=== PATIENT | female | born 1970 | race Caucasian/White ===

== ENCOUNTER 2016-12-04 16:20 | Inpatient (IN) | payer MEDICARE, MEDICAID ==
[~2016-12-04] VITALS: Ht 177.8 cm; Wt 152.3 kg
[~2016-12-04 16:20] MED LIST: ADV250 IH; ALBU8.5H IH; ALPR0.5T8 PO; BACL10TA PO; CLOZ100 PO; DESM0.2T2 PO; DEXL60CA3 PO; DOCU250C91 PO; FLUP10 PO; GABA-531 PO; LEVO125T4 PO; LISI-662 PO; OXYB10TA4 PO; PERCT10 PO; PROP10 PO; TIOT185 IH; VENL150C2 PO; VENL225T PO
[2016-12-04] MEDS ORDERED: GABA-531 PO (16:48)
[2016-12-04] MEDS ORDERED: LURA80 PO (16:48)
[2016-12-04 17:12] LABS: BASOPHILS % (AUTO) 0.3 % (0.0-2.0); EOSINOPHILS % (AUTO) 2.2 % (1.0-6.0); HEMATOCRIT 42.1 % (36-46); HEMOGLOBIN 13.5 g/dL (12.0-16.0); LYMPHOCYTES # (AUTO) 2.1 K/uL (1.0-4.8); LYMPHOCYTES % (AUTO) 18.9 % (22.0-44.0); MEAN CORPUSCULAR HEMOGLOBIN 29.6 pg (26.0-34.0); MEAN CORPUSCULAR VOLUME 92 fL (80-100); MONOCYTES # (AUTO) 0.9 K/uL (0.1-1.0); NEUTROPHILS # (AUTO) 7.8 K/uL (1.8-7.7); NEUTROPHILS % (AUTO) 70.6 % (40.0-70.0); PLATELET COUNT (AUTO) 370 K/uL (150-450); RED BLOOD CELL COUNT(AUTO) 4.56 MIL/uL (4.00-5.20); RED CELL DISTRIBUTION WIDTH 15.8 % (11.5-14.5)
[2016-12-04 17:22] LABS: ANION GAP 10 mmol/L (8-16); CALCIUM, TOTAL 8.5 mg/dL (8.8-10.5); CARBON DIOXIDE 26 mmol/L (22-29); CHLORIDE 100 mmol/L (98-107); CREATININE 0.86 mg/dL (0.60-1.30); GLOMERULAR FILTR. RATE CALC > 60 mL/min (>60); POTASSIUM 4.1 mmol/L (3.5-5.1); SODIUM SERUM 136 mmol/L (136-145); UREA NITROGEN, BLOOD 8 mg/dL (7-18)
[2016-12-04 17:26] LABS: ALANINE AMINOTRANSFERASE 42 U/L (12-78); ASPARTATE AMINOTRANSFERASE 18 U/L (15-37); BILIRUBIN,TOTAL 0.2 mg/dL (0.1-1.0); TOTAL PROTEIN, SERUM 7.1 g/dL (6.4-8.2)
[2016-12-04] MEDS ORDERED: HALOPERIDOL 5 MG TABLET PO ONE (21:15)
[2016-12-04] MEDS ORDERED: LORazepam 2 MG TABLET PO ONE (21:15)
[2016-12-04] MEDS ORDERED: -PHARMACY VACCINE NOTE- MISC ONE ×2 (22:15)
[2016-12-04] MEDS ORDERED: INFLUENZA VIRUS VACCINE QVS 2016-17 (3YR+)/PF 60 MCG/0.5 ML SYRINGE IM ONE (22:15)
[2016-12-04] MEDS ORDERED: ALBUTEROL SULFATE HFA 90 MCG/PUFF 8 GM INHALER IH PRN (22:30)
[2016-12-04] MEDS ORDERED: ALTEPLASE PER STROKE PROTOCOL CLINICAL ONE ×2 (22:45)
[2016-12-04 22:49] VITALS: BP 137/95
[2016-12-05 00:45] VITALS: BP 117/91
[2016-12-05] MEDS: ZOLPIDEM TARTRATE 10 MG TABLET PO PRN ×2 (00:51→20:43)
[2016-12-05 03:45] VITALS: BP 140/86
[2016-12-05] MEDS: LORazepam 2 MG TABLET PO PRN ×2 (03:48→08:53)
[2016-12-05] MEDS: LEVOTHYROXINE SODIUM 125 MCG TABLET PO SCH (06:45)
[2016-12-05] MEDS: TIOTROPIUM BROMIDE 18 MCG/INH HANDIHALER [5] IH SCH (08:45)
[2016-12-05] MEDS: FLUTICASONE/VILANTEROL 100-25 MCG/INH INHALER [14] IH SCH (08:45)
[2016-12-05] MEDS: OMEPRAZOLE 20 MG CAPSULE PO SCH (08:46)
[2016-12-05] MEDS: DOCUSATE SODIUM 250 MG CAPSULE PO SCH ×3 (08:46→16:44)
[2016-12-05] MEDS: OXYBUTYNIN CHLORIDE 5 MG ER TABLET PO SCH (08:46)
[2016-12-05] MEDS: BACLOFEN 10 MG TABLET PO SCH ×2 (08:46→16:45)
[2016-12-05] MEDS: LISINOPRIL 20 MG TABLET PO SCH (08:47)
[2016-12-05] MEDS: PROPRANOLOL HCL 20 MG TABLET PO SCH ×3 (08:47→16:44)
[2016-12-05 09:01] VITALS: BP 118/66
[2016-12-05] MEDS: PNEUMOCOCCAL VACCINE POLYVALENT 0.5 ML VIAL [PPSV23] IM ONE ×2 (10:58→11:00)
[2016-12-05 16:34] VITALS: BP 136/88
[2016-12-05] MEDS: DESMOPRESSIN ACETATE 0.2 MG TABLET PO SCH (20:42)
[2016-12-05] MEDS: HALOPERIDOL 5 MG TABLET PO PRN (20:43)
[2016-12-06] MEDS: LEVOTHYROXINE SODIUM 125 MCG TABLET PO SCH (06:46)
[2016-12-06 07:03] VITALS: BP 140/78
[2016-12-06] MEDS: HALOPERIDOL 5 MG TABLET PO PRN ×2 (07:07→17:06)
[2016-12-06] MEDS: OMEPRAZOLE 20 MG CAPSULE PO SCH (09:36)
[2016-12-06] MEDS: BACLOFEN 10 MG TABLET PO SCH ×2 (09:36→17:05)
[2016-12-06] MEDS: PROPRANOLOL HCL 20 MG TABLET PO SCH ×3 (09:37→17:06)
[2016-12-06] MEDS: CloZAPine 100 MG TABLET PO SCH ×2 (09:37→17:26)
[2016-12-06] MEDS: LISINOPRIL 20 MG TABLET PO SCH (09:37)
[2016-12-06] MEDS: VENLAFAXINE HCL 75 MG ER CAPSULE PO SCH (09:37)
[2016-12-06] MEDS: OXYBUTYNIN CHLORIDE 5 MG ER TABLET PO SCH (09:37)
[2016-12-06] MEDS: DOCUSATE SODIUM 250 MG CAPSULE PO SCH ×3 (09:38→17:07)
[2016-12-06] MEDS: TIOTROPIUM BROMIDE 18 MCG/INH HANDIHALER [5] IH SCH (09:38)
[2016-12-06] MEDS: FLUTICASONE/VILANTEROL 100-25 MCG/INH INHALER [14] IH SCH (09:38)
[2016-12-06 16:21] VITALS: BP 112/96
[2016-12-06] MEDS ORDERED: ALPR1TAB7 PO (17:20)
[2016-12-06] MEDS ORDERED: PROP20 PO (17:20)
[2016-12-06] MEDS ORDERED: NICOTINE 14 MG/24 HOUR PATCH TD ONE (17:30)
[2016-12-06] MEDS: ZOLPIDEM TARTRATE 10 MG TABLET PO PRN (21:09)
[2016-12-06] MEDS: DESMOPRESSIN ACETATE 0.2 MG TABLET PO SCH (21:09)
[2016-12-06] MEDS: MAG HYDROX/AL HYDROX/SIMETH 30 ML SUSP UDCUP PO PRN (22:35)
[2016-12-07 01:25] VITALS: BP 117/74
[2016-12-07] MEDS: HALOPERIDOL 5 MG TABLET PO PRN ×4 (02:25→21:50)
[2016-12-07] MEDS: MAG HYDROX/AL HYDROX/SIMETH 30 ML SUSP UDCUP PO PRN ×2 (06:26→13:24)
[2016-12-07] MEDS: LEVOTHYROXINE SODIUM 125 MCG TABLET PO SCH (06:26)
[2016-12-07 08:02] VITALS: BP 120/55
[2016-12-07] MEDS: OMEPRAZOLE 20 MG CAPSULE PO SCH (08:51)
[2016-12-07] MEDS: LISINOPRIL 20 MG TABLET PO SCH (08:51)
[2016-12-07] MEDS: DOCUSATE SODIUM 250 MG CAPSULE PO SCH ×3 (08:51→16:29)
[2016-12-07] MEDS: CloZAPine 100 MG TABLET PO SCH ×2 (08:52→16:28)
[2016-12-07] MEDS: VENLAFAXINE HCL 75 MG ER CAPSULE PO SCH (08:52)
[2016-12-07] MEDS: NICOTINE 14 MG/24 HOUR PATCH TD SCH (08:53)
[2016-12-07] MEDS: TIOTROPIUM BROMIDE 18 MCG/INH HANDIHALER [5] IH SCH (08:53)
[2016-12-07] MEDS: FLUTICASONE/VILANTEROL 100-25 MCG/INH INHALER [14] IH SCH (08:54)
[2016-12-07] MEDS: BACLOFEN 10 MG TABLET PO SCH ×2 (08:54→16:31)
[2016-12-07] MEDS: OXYBUTYNIN CHLORIDE 5 MG ER TABLET PO SCH (08:54)
[2016-12-07] MEDS: PROPRANOLOL HCL 20 MG TABLET PO SCH ×3 (08:54→16:29)
[2016-12-07 16:16] VITALS: BP 109/82
[2016-12-07] MEDS ORDERED: MAG HYDROX/AL HYDROX/SIMETH 30 ML SUSP UDCUP PO ONE (19:00)
[2016-12-07] MEDS: DESMOPRESSIN ACETATE 0.2 MG TABLET PO SCH (20:28)
[2016-12-08] MEDS: MAG HYDROX/AL HYDROX/SIMETH 30 ML SUSP UDCUP PO PRN ×2 (01:27→08:59)
[2016-12-08] MEDS: ZOLPIDEM TARTRATE 10 MG TABLET PO PRN (03:14)
[2016-12-08 03:15] VITALS: BP 127/77
[2016-12-08] MEDS: LEVOTHYROXINE SODIUM 125 MCG TABLET PO SCH (06:13)
[2016-12-08] MEDS: DOCUSATE SODIUM 250 MG CAPSULE PO SCH ×3 (08:11→18:21)
[2016-12-08] MEDS: TIOTROPIUM BROMIDE 18 MCG/INH HANDIHALER [5] IH SCH (08:11)
[2016-12-08] MEDS: FLUTICASONE/VILANTEROL 100-25 MCG/INH INHALER [14] IH SCH (08:11)
[2016-12-08] MEDS: CloZAPine 100 MG TABLET PO SCH ×2 (08:12→18:20)
[2016-12-08] MEDS: BACLOFEN 10 MG TABLET PO SCH ×2 (08:12→18:20)
[2016-12-08] MEDS: OXYBUTYNIN CHLORIDE 5 MG ER TABLET PO SCH (08:12)
[2016-12-08] MEDS: OMEPRAZOLE 20 MG CAPSULE PO SCH (08:12)
[2016-12-08] MEDS: VENLAFAXINE HCL 75 MG ER CAPSULE PO SCH (08:12)
[2016-12-08] MEDS: NICOTINE 14 MG/24 HOUR PATCH TD SCH (08:14)
[2016-12-08 08:50] VITALS: BP 103/53
[2016-12-08 09:04] VITALS: BP 126/79
[2016-12-08] MEDS: LISINOPRIL 20 MG TABLET PO SCH (09:05)
[2016-12-08] MEDS: PROPRANOLOL HCL 20 MG TABLET PO SCH ×3 (09:05→18:20)
[2016-12-08] MEDS ORDERED: MAG HYDROX/AL HYDROX/SIMETH 30 ML SUSP UDCUP PO PRN (11:45)
[2016-12-08] MEDS: MAG HYDROX/AL HYDROX/SIMETH ES 30 ML SUSPENSION UDCUP PO PRN ×2 (12:03→22:27)
[2016-12-08] MEDS ORDERED: HALO5 PO (14:15)
[2016-12-08] MEDS ORDERED: OMEP20 PO (14:15)
[2016-12-08] MEDS ORDERED: ZOLP10 PO (14:15)
[2016-12-08 18:10] VITALS: BP 115/74
[2016-12-08] MEDS: PROMETHAZINE HCL 25 MG TABLET PO PRN (20:12)
[2016-12-08] MEDS: DESMOPRESSIN ACETATE 0.2 MG TABLET PO SCH (20:13)
[2016-12-09 01:30] VITALS: BP 122/77
[2016-12-09] MEDS: LEVOTHYROXINE SODIUM 125 MCG TABLET PO SCH (06:31)
[2016-12-09 08:02] VITALS: BP 111/70
[2016-12-09] MEDS: NICOTINE 14 MG/24 HOUR PATCH TD SCH (09:36)
[2016-12-09] MEDS: OMEPRAZOLE 20 MG CAPSULE PO SCH (09:36)
[2016-12-09] MEDS: VENLAFAXINE HCL 75 MG ER CAPSULE PO SCH (09:36)
[2016-12-09] MEDS: OXYBUTYNIN CHLORIDE 5 MG ER TABLET PO SCH (09:37)
[2016-12-09] MEDS: CloZAPine 100 MG TABLET PO SCH ×2 (09:37→16:30)
[2016-12-09] MEDS: DOCUSATE SODIUM 250 MG CAPSULE PO SCH ×3 (09:38→16:30)
[2016-12-09] MEDS: BACLOFEN 10 MG TABLET PO SCH ×2 (09:38→16:30)
[2016-12-09] MEDS: PROPRANOLOL HCL 20 MG TABLET PO SCH ×3 (09:38→16:29)
[2016-12-09] MEDS: LISINOPRIL 20 MG TABLET PO SCH (09:38)
[2016-12-09] MEDS: HALOPERIDOL 5 MG TABLET PO PRN (09:39)
[2016-12-09] MEDS: FLUTICASONE/VILANTEROL 100-25 MCG/INH INHALER [14] IH SCH (10:10)
[2016-12-09] MEDS: TIOTROPIUM BROMIDE 18 MCG/INH HANDIHALER [5] IH SCH (10:10)
[2016-12-09] MEDS: MAG HYDROX/AL HYDROX/SIMETH ES 30 ML SUSPENSION UDCUP PO PRN ×3 (10:20→22:08)
[2016-12-09] MEDS: PROMETHAZINE HCL 25 MG TABLET PO PRN ×2 (10:20→18:36)
[2016-12-09 16:14] VITALS: BP 142/76
[2016-12-09] MEDS: DESMOPRESSIN ACETATE 0.2 MG TABLET PO SCH (20:32)
[2016-12-10] MEDS: PROMETHAZINE HCL 25 MG TABLET PO PRN (05:40)
[2016-12-10 05:50] VITALS: BP 124/75
[2016-12-10] MEDS: LEVOTHYROXINE SODIUM 125 MCG TABLET PO SCH (06:38)
[2016-12-10] MEDS: MAG HYDROX/AL HYDROX/SIMETH ES 30 ML SUSPENSION UDCUP PO PRN (07:30)
[2016-12-10] MEDS: OMEPRAZOLE 20 MG CAPSULE PO SCH (08:18)
[2016-12-10] MEDS: FLUTICASONE/VILANTEROL 100-25 MCG/INH INHALER [14] IH SCH (08:18)
[2016-12-10] MEDS: LISINOPRIL 20 MG TABLET PO SCH (08:18)
[2016-12-10] MEDS: TIOTROPIUM BROMIDE 18 MCG/INH HANDIHALER [5] IH SCH (08:18)
[2016-12-10] MEDS: CloZAPine 100 MG TABLET PO SCH (08:19)
[2016-12-10] MEDS: VENLAFAXINE HCL 75 MG ER CAPSULE PO SCH (08:19)
[2016-12-10] MEDS: DOCUSATE SODIUM 250 MG CAPSULE PO SCH (08:19)
[2016-12-10] MEDS: OXYBUTYNIN CHLORIDE 5 MG ER TABLET PO SCH (08:20)
[2016-12-10] MEDS: PROPRANOLOL HCL 20 MG TABLET PO SCH (08:20)
[2016-12-10] MEDS: BACLOFEN 10 MG TABLET PO SCH (08:20)
[2016-12-10] MEDS: NICOTINE 14 MG/24 HOUR PATCH TD SCH (08:24)
[2016-12-10] MEDS ORDERED: CLOZ100 PO (08:36)
[2016-12-10 08:39] VITALS: BP 153/100
[2016-12-10 09:33] VITALS: BP 121/79
== END 2016-12-10 11:00 | disposition home or self-care (01) | DRG 885 ==
LOC: EEVIPCON 16:22 → EMS 16:22 → B3A 20:55
PROVIDERS: ADMIT Psychiatry & Neurology Psychiatry; ATTEND Psychiatry & Neurology Psychiatry
PROC: 3E0234Z Introduction of Serum, Toxoid and Vaccine into Muscle, Percutaneous Approach (ICD-10-PCS; principal; 2016-12-05)
DX: F25.0 Schizoaffective disorder, bipolar type (principal); R45.851 Suicidal ideations; E03.9 Hypothyroidism, unspecified; I10 Essential (primary) hypertension; J44.9 Chronic obstructive pulmonary disease, unspecified; J45.909 Unspecified asthma, uncomplicated; K21.9 Gastro-esophageal reflux disease without esophagitis; R32 Unspecified urinary incontinence; F17.210 Nicotine dependence, cigarettes, uncomplicated; F60.3 Borderline personality disorder; Z62.819 Personal history of unspecified abuse in childhood; F10.10 Alcohol abuse, uncomplicated; F19.10 Other psychoactive substance abuse, uncomplicated; Z63.9 Problem related to primary support group, unspecified; Z90.49 Acquired absence of other specified parts of digestive tract; Z79.899 Other long term (current) drug therapy; Z88.8 Allergy status to other drugs, medicaments and biological substances; Z91.5 Personal history of self-harm; Z23 Encounter for immunization
CPT/HCPCS: 90471; 99285; G0480

== ENCOUNTER 2016-12-08 13:38 | Emergency (ER) | payer OTHER ==
[~2016-12-08] VITALS: Ht 177.8 cm; Wt 161.0 kg
[~2016-12-08 13:38] MED LIST changes: +ALPR1TAB7 PO; +LURA80 PO; +PROP20 PO
[2016-12-08 14:15] LABS: BASOPHILS # (AUTO) 0.16 K/uL (0.00-0.20); BASOPHILS % (AUTO) 1.8 % (0.0-2.0); EOSINOPHILS # (AUTO) 0.16 K/uL (0.00-0.70); EOSINOPHILS % (AUTO) 1.81 % (1.0-6.0); HEMATOCRIT 44.5 % (36-46); HEMOGLOBIN 14.5 g/dL (12.0-16.0); LYMPHOCYTES # (AUTO) 1.8 K/uL (1.0-4.8); LYMPHOCYTES % (AUTO) 20.3 % (22.0-44.0); MEAN CORPUSCULAR HEMOGLOBIN 29.8 pg (26.0-34.0); MEAN CORPUSCULAR HGB CONC 32.6 G/dL (31.0-37.0); MEAN CORPUSCULAR VOLUME 91 fL (80-100); MONOCYTES # (AUTO) 1.2 K/uL (0.1-1.0); MONOCYTES % (AUTO) 13.4 % (2.0-9.0); NEUTROPHILS # (AUTO) 5.5 K/uL (1.8-7.7); NEUTROPHILS % (AUTO) 62.8 % (40.0-70.0); PLATELET COUNT (AUTO) 352 K/uL (150-450); RED BLOOD CELL COUNT(AUTO) 4.87 MIL/uL (4.00-5.20); RED CELL DISTRIBUTION WIDTH 16.1 % (11.5-14.5); WHITE BLOOD COUNT (AUTO) 8.7 K/uL (4.5-11.0)
[2016-12-08] MEDS ORDERED: HALO5 PO (14:15)
[2016-12-08] MEDS ORDERED: ZOLP10 PO (14:15)
[2016-12-08] MEDS ORDERED: OMEP20 PO (14:15)
[2016-12-08 14:30] LABS: APPEARANCE,URINE CLEAR (CLEAR); GLUCOSE, URINE (UA) NEGATIVE (NEGATIVE); KETONES,URINE NEGATIVE (NEGATIVE); LEUKOCYTE ESTERASE ,URINE NEGATIVE (NEGATIVE); OCCULT BLOOD,URINE NEGATIVE (NEGATIVE); PROTEIN,URINE NEGATIVE (NEGATIVE)
[2016-12-08 14:30] LABS: ANION GAP 8 mmol/L (8-16); CALCIUM, TOTAL 8.7 mg/dL (8.8-10.5); CARBON DIOXIDE 33 mmol/L (22-29); CHLORIDE 96 mmol/L (98-107); CREATININE 0.98 mg/dL (0.60-1.30); GLOMERULAR FILTR. RATE CALC > 60 mL/min (>60); SODIUM SERUM 137 mmol/L (136-145); UREA NITROGEN, BLOOD 18 mg/dL (7-18)
[2016-12-08 14:32] LABS: ADD UA MICROSCOPIC NO
[2016-12-08 14:37] LABS: ALANINE AMINOTRANSFERASE 58 U/L (12-78); ALBUMIN 3.4 g/dL (3.4-5.0); ASPARTATE AMINOTRANSFERASE 31 U/L (15-37); BILIRUBIN,TOTAL 0.3 mg/dL (0.1-1.0); TOTAL PROTEIN, SERUM 7.7 g/dL (6.4-8.2)
[2016-12-08] MEDS ORDERED: ONDANSETRON HCL 4 MG/2 ML VIAL IM ONE (15:15)
[2016-12-08] MEDS ORDERED: DONNATAL/LIDOCAINE/MAALOX 55 ML BOTTLE PO ONE (15:15)
[2016-12-08 17:06] VITALS: BP 108/68
== END 2016-12-08 17:10 | disposition home or self-care (01) ==
LOC: EMS 13:40
DX: K21.9 Gastro-esophageal reflux disease without esophagitis (principal); F25.9 Schizoaffective disorder, unspecified; F17.210 Nicotine dependence, cigarettes, uncomplicated; J44.9 Chronic obstructive pulmonary disease, unspecified; F31.9 Bipolar disorder, unspecified; I10 Essential (primary) hypertension; Z88.8 Allergy status to other drugs, medicaments and biological substances
CPT/HCPCS: 36415; 74022; 80053; 81003; 83690; 84703; 85025; 96372; 99285; 99406; J2405